=== PATIENT | female | born 1955 | race Caucasian/White ===

== ENCOUNTER 2018-05-22 06:16 | Day surgery (SDC) | payer BC ==
[2018-05-21 11:00] VITALS: BMI 31.5
[2018-05-22] VITALS (14 sets, daily range): BP systolic 102–138; BP diastolic 58–76; PULSE 75–96; RESP 16–31; Ht 166.4 cm; Wt 87.0 kg
[~2018-05-22] VITALS: Ht 166.4 cm; Wt 87.0 kg
[~2018-05-22 06:16] MED LIST: ALLO100T PO; LISI2.5T59 PO; METF500T24 PO; MONT4TAB8 PO; POTA20TA96 PO; VIT D3
--- NOTE | 2018-05-22 06:40 | PREOPHP ---
DATE OF ADMISSION: 05/22/2018 HISTORY OF PRESENT ILLNESS: This is a 62-year-old lady, 2, para 1 with 1 spontaneous abortio n. Her last normal menstrual period was at the age of 49. She was admitted for D and C, hysteroscop y and suction curettage. This patient had known to have bled about a year prior to admission that la sted for at least a week and the patient did not like to go for endometrial biopsy. She wanted to go for D and C as she claims that she is having a lot of pain during pelvic exam. She has been on estr ogen replacement therapy and she had this stopped the Premarin because of the bleeding. So, she was admitted for D and C, hysteroscopy, suction curettage. The procedures were explained to the patient and she understood everything totally. The risks, benefits and alternatives were discussed with her as well. PAST MEDICAL HISTORY: No history of TB, asthma. She has a history of hypertension and diabetes. ALLERGIES: THE PATIENT IS ALLERGIC TO PENICILLIN. PAST SURGICAL HISTORY: She had a bladder surgery and nose surgery. FAMILY HISTORY: Hypertension. Father and mother's side have diabetes. Family history of cancer of the breast in her aunt. PAST OBSTETRICAL HISTORY: She is 2, para 1 with 1 normal delivery. REVIEW OF SYSTEMS: CARDIOVASCULAR: No chest pains. RESPIRATORY: No cough. GASTROINTESTINAL: No diarrhea, no vomiting. GENITOURINARY: No dysuria. PHYSICAL EXAMINATION: GENERAL: Reveals a conscious, coherent lady and in no acute distress. VITAL SIGNS: Blood pressure 130/80, pulse rate 80 per minute, respirations 16 per minute. BREASTS, HEART AND LUNGS: Within normal limits. ABDOMEN: Soft and obese. PELVIC: Revealed the cervix to be firm, uterus of normal size, and adnexa were negative for masses. RECTAL: Confirmed the pelvic findings. EXTREMITIES: No pedal edema. ADMITTING DIAGNOSIS: Postmenopausal bleeding. PLAN: The patient is planned to have the above procedure. Dictated By: CAMILA DREW/ALESIA Conf#: [id number] DID#: [id number]
[2018-05-22] MEDS ORDERED: LISI1TAB4 PO (07:37)
[2018-05-22] MEDS ORDERED: ASPI-903 PO (07:38)
[2018-05-22] MEDS ORDERED: POTA-57 PO (07:39)
[2018-05-22] MEDS ORDERED: ALLO300T2 PO (07:40)
[2018-05-22] MEDS ORDERED: MONT10TA24 PO (07:41)
[2018-05-22] MEDS ORDERED: METF-849 PO (07:41)
[2018-05-22] MEDS ORDERED: CHOL100062 PO (07:44)
[2018-05-22] MEDS ORDERED: FLOV220 INHALATION (07:44)
[2018-05-22] MEDS ORDERED: ATOR40TA68 PO (07:45)
--- NOTE | 2018-05-22 09:28 | PREAC ---
Date/Time of Note Date/Time of Note DATE: 05/22/18 TIME: 09: Anesthesia Eval and Record Evaluation Time Pre-Procedure Interview DATE: 05/22/18 TIME: : Age 62 Sex female NPO: 8 hrs Preoperative diagnosis Postmenopausal bleeding Planned procedure Hysteroscopy, D&C Past Medical History Past Medical History: Includes Cardio: HTN, Dyslipidemia Endo: Diabetes GI: Morbid obesity Surgery & Anesthesia Issues No known issue Meds Anticoagulation: Yes Beta Maisha within 24 hr: No Reason Beta Maisha not given: Pt. not on B-Maisha Reported Medications Atorvastatin* (Atorvastatin*) 40 Mg Tablet, 40 MG PO QHS, #30 TAB 05/22/18 Fluticasone Propionate* (Flovent* HFA 220) 12 Gm Inha, 1 PUFF INHALATION BID, #1 INHALER 05/22/18 Cholecalciferol* (Vitamin D3*) 1,000 Unit Tablet, 2000 UNIT PO QAM, TAB 05/22/18 Montelukast Sodium* (Montelukast Sodium*) 10 Mg Tablet, 10 MG PO QHS, #30 TAB 05/22/18 Metformin* (Glucophage*) 500 Mg Tab, 500 MG PO QAM, #60 TAB 05/22/18 Allopurinol* (Allopurinol*) 300 Mg Tablet, 300 MG PO QAM, TAB 05/22/18 Potassium Chloride* (Klor-Con*) 20 Meq Tabsr, 10 MEQ PO QAM, TAB.SA 05/22/18 Aspirin* (Aspirin* Chew) 81 Mg Tab.chew, 81 MG PO DAILY, TAB.CHEW 05/22/18 Lisinopril/Hydrochlorothiazide (Lisinopril-Hctz 10-12.5 mg Tab) 1 Each Tablet, 2 EACH PO QAM, TAB 05/22/18 Discontinued Reported Medications [Vit D3] No Conflict Check, 2000 UNITS 05/21/18 Montelukast Sodium* (Singulair*) Unknown Strength Tab.chew, PO, #30 TAB 05/21/18 Allopurinol* (Allopurinol*) 100 Mg Tablet, PO BID, TAB 05/21/18 Metformin Hcl* (Metformin Hcl*) 500 Mg Tablet, PO WITH BREAKFAST, #30 TAB 05/21/18 Potassium Chloride* (Potassium Chloride*) Unknown Strength Tablet.er, PO DAILY, TAB.SA 05/21/18 Lisinopril* (Lisinopril*) 2.5 Mg Tablet, 2.5 MG PO DAILY, #30 TAB 05/21/18 Current Medications Influenza Virus Vaccine Quadrival (Fluzone) 0.5 ml ONCE ONCE IM* ; Start 05/22/18 at 11:00; Stop 05/22/18 at 11:01 Meds reviewed: Yes Allergies Uncoded Allergies: PCN (Allergy, Mild, RASH, 05/22/18) PER PT Allergies Reviewed: Yes Labs/Studies Labs Reviewed: Reviewed by anesthesiologist Blood Bank Test 05/21/18 10:58 Antibody Screen NEGATIVE Blood Type A POSITIVE test: N/A Studies: ECG Pre-procedure Exam Last vitals Vital Signs Date Temp Pulse Resp B/P (MAP) Pulse Ox O2 O2 Flow FiO2 Time Delivery Rate 05/22/18 97.2 92 16 138/67 98 Room Air 08:09 (90) Airway: Adequate mouth opening, Adequate thyromental dist Mallampati: Mallampati II Teeth: Normal Lung: Normal Heart: Normal ASA Physical Status ASA physical status: 3 Emergency: None Planned Anesthetic General/MAC: LMA Planned Pain Management Parenteral pain med Pre-operative Attestations Prior to commencing anesthesia and surgery, the patient was re-evaluated, there was verification of: *The patient's identity *The results of appropriate recent lab work and preoperative vital signs *The above evaluation not changing prior to induction *Anesthetic plan, risk benefits, alternative and complications discussed with patient/family; questions answered; patient/family understands, accepts and wishes to proceed. HOMER GOODMAN MD May 22, 2018 09:28
[2018-05-22] MEDS ORDERED: MIDAZOLAM 1 MG/ML 2 ML INJ ONE (09:30)
[2018-05-22] MEDS ORDERED: FENTAnyl 50 MCG/ML VIAL ONE (09:30)
[2018-05-22] MEDS ORDERED: PHENYLephrine (100 MCG/ML) 5ML SYG ONE (09:37)
[2018-05-22] MEDS ORDERED: ONDANSETRON 4 MG INJ ONE (10:07)
[2018-05-22] MEDS ORDERED: PROPOFOL 20 ML ONE (10:07)
[2018-05-22] MEDS ORDERED: LIDOCAINE 2% (SDV) 5 ML INJ ONE (10:07)
[2018-05-22] MEDS ORDERED: CEFAZOLIN 1 GM INJ ONE (10:08)
--- NOTE | 2018-05-22 10:16 | PAC ---
Date/Time of Note Date/Time of Note DATE: 05/22/18 TIME: 10:16 Post-Anesthesia Notes Post-Anesthesia Note Last documented vital signs Vital Signs Date Temp Pulse Resp B/P (MAP) Pulse Ox O2 O2 Flow FiO2 Time Delivery Rate 05/22/18 97.2 92 16 138/67 98 Room Air 08:09 (90) Activity: WNL Respiratory function: WNL Cardiovascular function: WNL Mental status: Baseline Pain reasonably controlled: Yes Hydration appropriate: Yes Nausea/Vomiting absent: Yes Comments BP:116/56, P:76, Spo2:100%, T:98,8 HOMER GOODMAN MD May 22, 2018 10:16
--- NOTE | 2018-05-22 10:20 | SIPON ---
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
[2018-05-22] MEDS ORDERED: HYDROmorphONE 1 MG/5 ML IV SYRINGE IV ONE (10:28)
[2018-05-22] MEDS ORDERED: FENTAnyl 50 MCG/ML VIAL IV PRN (10:30)
[2018-05-22] MEDS ORDERED: ONDANSETRON 4 MG INJ IV PRN (10:30)
[2018-05-22] MEDS ORDERED: ACETAMINOPHEN 325 MG TAB PO PRN (10:30)
[2018-05-22] MEDS ORDERED: HYDROmorphONE 1 MG/5 ML IV SYRINGE IV PRN ×2 (10:30)
[2018-05-22] MEDS ORDERED: DIPHENHYDRAMINE 50 MG INJ IV PRN (10:30)
[2018-05-22] MEDS ORDERED: MEPERIDINE 25 MG INJ IV PRN (10:30)
[2018-05-22] MEDS ORDERED: LABETALOL HCL 20MG INJ IV PRN (10:30)
[2018-05-22] MEDS ORDERED: hydrALAzine 20 MG INJ IV PRN (10:30)
[2018-05-22] MEDS ORDERED: METOCLOPRAMIDE 10 MG INJ IV PRN (10:30)
[2018-05-22] MEDS ORDERED: KETOROLAC 30 MG INJ IV PRN (10:30)
--- NOTE | 2018-05-24 05:44 | OPR ---
DATE OF OPERATION: 05/22/2018 PREOPERATIVE DIAGNOSIS: Postmenopausal bleeding. POSTOPERATIVE DIAGNOSIS: Postmenopausal bleeding. OPERATION PERFORMED: Pelvic exam under anesthesia and attempted fractional dilatation and curettage, but failed. SURGEON: Emili Ko MD VICE PRESIDENT OF COMMUNICATIONS: Dmitri earl. ANESTHESIA: General. OPERATIVE TECHNIQUE: Under general anesthesia, the patient was prepped and draped in the usual fashion for vaginal surgery. Pelvic exam under anesthesia revealed the cervix to be all the way on the anterior vaginal wall and uterus of normal size, and adnexa were negative for masses. Then, the heavy weight vaginal retractor was put in place and the anterior lip of the cervix was grasped with an Allis clamp. Endocervical dilatation was attempted many times, but failed. The cervix was noted to be stenotic and cannot be dilated. ____ cannot be done as well. After many attempts, the procedure was terminated. The patient tolerated the attempt well. Estimated blood loss was minimal. Vital signs were stable during and after the attempt D and C. Dictated By: EMILI DREW/ALESIA Conf#: [id number] DID#: [id number]
== END 2018-05-22 11:25 | disposition home or self-care (01) ==
LOC: SDS 06:16
PROVIDERS: ATTEND Obstetrics & Gynecology
DX: N95.8 Other specified menopausal and perimenopausal disorders (principal); I10 Essential (primary) hypertension; E11.9 Type 2 diabetes mellitus without complications; Z23 Encounter for immunization; E78.5 Hyperlipidemia, unspecified
CPT/HCPCS: 58120; 82962; 84702; 86850; 86900; 86901; 90686; J0690; J1170; J2250; J2405; J3010; Z7512; Z7610; J2370